=== PATIENT | male | born 1990 | race American Indian/Alaskan Native ===

== ENCOUNTER 2020-05-16 18:31 | Emergency (ER) | payer OTHER ==
[2020-05-16] MEDS ORDERED: ONDANSETRON 4 MG/2 ML INJ IV ONE (20:55)
[2020-05-16] MEDS ORDERED: KETOROLAC 30 MG/1 ML INJ IV ONE (20:55)
[2020-05-16] MEDS ORDERED: SODIUM CHLORIDE 0.9% 1000 ML 1,000 ML IV ONE (20:55)
[2020-05-16 21:17] LABS: Hematocrit 42.5 % (35.5-45.6); Hemoglobin 14.5 gm/dl (11.8-15.2); Mean Corpuscular HGB Conc 34 % (32-34); Mean Corpuscular Volume 88 fl (84-94); Platelet Count 218 K/mm3 (140-440); Red Cell Distribution Width 15.1 % (13.2-15.2)
[2020-05-16 21:34] LABS: Bilirubin,Urine NEG (Negative); Blood,Urine NEG (Negative); Color,Urine Yellow (Yellow); Protein,Urine <15 mg/dL mg/dL (Negative); Urobilinogen,Urine < 2.0 mg/dL (<2.0); WBC,Urine < 1.0 /HPF (0.0-6.0)
[2020-05-16 21:35] LABS: Alanine Aminotransferase 27 units/L (7-56); Albumin 4.2 g/dL (3.9-5); BUN/Creatinine Ratio 11; Blood Urea Nitrogen 14 mg/dL (9-20); Calcium 9.2 mg/dL (8.4-10.2); Hemolysis Index 15
--- NOTE | 2020-05-16 22:14 | Cat Scan Report ---
CT ABDOMEN AND PELVIS WITHOUT CONTRAST INDICATION / CLINICAL INFORMATION: Left flank/groin pain - r/o kidney stones, hernia. TECHNIQUE: Axial CT images were obtained through the abdomen and pelvis without IV contrast. All CT scans at this location are performed using CT dose reduction for ALARA by means of automated exposure control. COMPARISON: None available. FINDINGS: Lack of subcutaneous and intra-abdominal fat limits the sensitivity of this study. LOWER CHEST: No significant abnormality. LIVER: No significant abnormality. GALLBLADDER: No significant abnormality. BILE DUCTS: No significant abnormality. PANCREAS: No significant abnormality. SPLEEN: No significant abnormality. ADRENALS: No significant abnormality. RIGHT KIDNEY / URETER: No significant abnormality. LEFT KIDNEY / URETER: Dilated left renal pelvis without obstructing stone identified. STOMACH / SMALL BOWEL: No significant abnormality. COLON: No significant abnormality. APPENDIX: Not visualized. PERITONEUM: No free fluid. No free air. No fluid collection. LYMPH NODES: No significant adenopathy. AORTA / ARTERIES: No significant abnormality. IVC / VEINS: No significant abnormality. URINARY BLADDER: Contracted. No acute abnormality. REPRODUCTIVE ORGANS: No significant abnormality. ADDITIONAL FINDINGS: None. SKELETAL SYSTEM: No significant abnormality. IMPRESSION: 1. No urinary tract stones. 2. Mildly dilated left renal pelvis without definite hydronephrosis. 3. No inflammatory process. Signer Name: Capo Garland MD Signed: 05/16/2020 10:10 PM Workstation Name: [id number]
[2020-05-16 22:25] LABS: Total Cells Counted 100
[2020-05-16 22:27] LABS: Platelet Estimate Consistent w Auto; RBC Morphology Normal
--- NOTE | 2020-05-16 22:38 | Emergency Department Report ---
ED Abdominal Pain HPI - General Chief Complaint: Pain General Stated Complaint: LT SIDE GROIN PAIN Source: patient Mode of arrival: Ambulatory Limitations: No Limitations - History of Present Illness Initial Comments: Patient is a 29-year-old -[place] male with no past medical history except left inguinal hernia surgery with mesh, who presents to the ED with acute onset persistent left flank pain that radiates to the left inguinal area for the last 2 days. Patient states that the pain is persistent, constant and worse with movement. Patient states that the pain has been sharp, waxing and waning. Patient denies hematuria, testicular pain, dysuria, urinary frequency and urgency, chest pain, nausea and vomiting, penile discharge, traumatic injury, fever, chills, cough, sore throat, chest pain or shortness of breath and diarrhea. MD Complaint: abdominal pain (Left inguinal), flank pain (LEFT) -: Sudden, days(s) (2) Location: L flank Radiation: L flank, other (left inguinal) Migration to: L flank, other (left inguinal ) Severity: severe Severity scale (0 -10): 8 Improves With: nothing Worsens With: movement Associated Symptoms: denies other symptoms, anorexia. denies: nausea, vomiting, fever, chills, dysuria, hematemesis, hematochezia, melena - Related Data Previous Rx's Medication Instructions Recorded Last Taken Type Baclofen 20 mg PO Q8H PRN #21 tablet 05/16/20 Unknown Rx Naproxen 500 mg PO Q12H PRN #30 tablet 05/16/20 Unknown Rx Allergies Allergy/AdvReac Type Severity Reaction Status Date / Time No Known Allergies Allergy Unverified 05/16/20 18:42 ED Review of Systems ROS: Stated complaint: LT SIDE GROIN PAIN Other details as noted in HPI Constitutional: denies: chills, fever Eyes: denies: eye pain, eye discharge, vision change ENT: denies: ear pain, throat pain Respiratory: denies: cough, shortness of breath, wheezing Cardiovascular: denies: chest pain, palpitations Endocrine: no symptoms reported Gastrointestinal: abdominal pain (left flank pain radiating to left inguinal area). denies: nausea, vomiting, diarrhea Genitourinary: denies: urgency, dysuria Musculoskeletal: denies: back pain, joint swelling, arthralgia Skin: denies: rash, lesions Neurological: denies: headache, weakness, paresthesias Psychiatric: denies: anxiety, depression Hematological/Lymphatic: denies: easy bleeding, easy bruising ED Past Medical Hx - Past Medical History Previous Medical History?: Yes Additional medical history: left groin - Surgical History Past Surgical History?: Yes Additional Surgical History: left groin hernia repair - Social History Smoking Status: Current Every Day Smoker Substance Use Type: Alcohol, Marijuana - Medications Home Medications: Home Medications Medication Instructions Recorded Confirmed Last Taken Type Baclofen 20 mg PO Q8H PRN #21 tablet 05/16/20 Unknown Rx Naproxen 500 mg PO Q12H PRN #30 tablet 05/16/20 Unknown Rx ED Physical Exam - General Limitations: No Limitations General appearance: alert, in no apparent distress - Head Head exam: Present: atraumatic, normocephalic, normal inspection - Eye Eye exam: Present: normal appearance, PERRL, EOMI Pupils: Present: normal accommodation - ENT ENT exam: Present: normal exam, normal orophraynx, mucous membranes moist, TM's normal bilaterally, normal external ear exam - Neck Neck exam: Present: normal inspection, full ROM - Respiratory Respiratory exam: Present: normal lung sounds bilaterally. Absent: respiratory distress, wheezes, chest wall tenderness, decreased breath sounds, prolonged expiratory - Cardiovascular Cardiovascular Exam: Present: normal rhythm, bradycardia, normal heart sounds. Absent: systolic murmur, diastolic murmur, rubs, gallop - GI/Abdominal GI/Abdominal exam: Present: soft, tenderness (Palpable left flank and left inguinal tenderness), normal bowel sounds. Absent: rebound, rigid, hyperactive bowel sounds, hypoactive bowel sounds, organomegaly - exam: Present: normal inspection External exam: Present: normal external exam, other (Palpable left inguinal tenderness, no sign of inguinal hernia on physical exam) - Extremities Exam Extremities exam: Present: normal inspection, full ROM, normal capillary refill - Back Exam Back exam: Present: normal inspection, full ROM. Absent: tenderness, CVA tende rness (R), CVA tenderness (L), muscle spasm, paraspinal tenderness, vertebral tenderness - Neurological Exam Neurological exam: Present: alert, oriented X3, CN II-XII intact, normal gait, reflexes normal - Psychiatric Psychiatric exam: Present: normal affect, normal mood - Skin Skin exam: Present: warm, dry, intact, normal color. Absent: rash ED Course Vital Signs 05/16/20 18:44 Temperature 98.2 F Pulse Rate 47 L Respiratory 20 Rate Blood Pressure 122/69 O2 Sat by Pulse 99 Oximetry ED Medical Decision Making - Lab Data Result diagrams: 05/16/20 21:04 05/16/20 21:04 - Radiology Data Radiology results: report reviewed, image reviewed [facility] [address] [id number] Cat Scan Report Signed Patient: KATERIN HAQUE MR#: [id number] : 1990 Acct:[id number] Age/Sex: 29 / M ADM Date: 05/16/20 Loc: ED Attending Dr: Ordering Physician: EDISON MORTON Date of Service: 05/16/20 Procedure(s): CT abdomen pelvis wo con Accession Number(s): [id number] cc: EDISON MORTON CT ABDOMEN AND PELVIS WITHOUT CONTRAST INDICATION / CLINICAL INFORMATION: Left flank/groin pain - r/o kidney stones, hernia. TECHNIQUE: Axial CT images were obtained through the abdomen and pelvis without IV contrast. All CT scans at this location are performed using CT dose reduction for ALARA by means of automated exposure control. COMPARISON: None available. FINDINGS: Lack of subcutaneous and intra-abdominal fat limits the sensitivity of this study. LOWER CHEST: No significant abnormality. LIVER: No significant abnormality. GALLBLADDER: No significant abnormality. BILE DUCTS: No significant abnormality. PANCREAS: No significant abnormality. SPLEEN: No significant abnormality. ADRENALS: No significant abnormality. RIGHT KIDNEY / URETER: No significant abnormality. LEFT KIDNEY / URETER: Dilated left renal pelvis without obstructing stone identified. STOMACH / SMALL BOWEL: No significant abnormality. COLON: No significant abnormality. APPENDIX: Not visualized. PERITONEUM: No free fluid. No free air. No fluid collection. LYMPH NODES: No significant adenopathy. AORTA / ARTERIES: No significant abnormality. IVC / VEINS: No significant abnormality. URINARY BLADDER: Contracted. No acute abnormality. REPRODUCTIVE ORGANS: No significant abnormality. ADDITIONAL FINDINGS: None. SKELETAL SYSTEM: No significant abnormality. IMPRESSION: 1. No urinary tract stones. 2. Mildly dilated left renal pelvis without definite hydronephrosis. 3. No inflammatory process. Signer Name: Capo Garland MD Signed: 05/16/2020 10:10 PM Workstation Name: [id number] Transcribed By: DT Dictated By: Chiki Garland MD Electronically Authenticated By: Chiki Garland MD Signed Date/Time: 05/16/202209 DD/ 06 TD/TT: - Medical Decision Making This is a 29-year-old -[place] male with no past medical history except left inguinal hernia surgery with mesh, who presents to the ED with acute onset persistent left flank pain that radiates to the left inguinal area for the last 2 days. Patient states that the pain is persistent, constant and worse with movement. Patient states that the pain has been sharp, waxing and waning. In the ED, patient is alert and oriented x3 and is not in any distress. Patient declined any pain medications in the ED. Lab test results were reviewed and are all nonactionable. Abdomen pelvis CT scan without contrast showed No urinary tract stones or inflammatory process but it showed a mildly dilated left renal pelvis without definite hydronephrosis. Based on these findings, the patient may have had kidney stone but passed the stone prior to arrival in the ED. Patient was therefore discharged home on pain medications and advised to follow- up with his primary care physician in 5 to 7 days for reevaluation or return to the ED immediately if symptoms get worse. - Differential Diagnosis Kidney stones; UTI; Epididymitis; Inguinal strain; renal colic; diverticuli Critical care attestation.: If time is entered above; I have spent that time in minutes in the direct care of this critically ill patient, excluding procedure time. ED Disposition Clinical Impression: Acute left flank pain, Renal colic on left side Strain of left inguinal muscle Qualifiers: Encounter type: initial encounter Qualified Code(s): S39.013A - Strain of muscle, fascia and tendon of pelvis, initial encounter Disposition: DC-01 TO HOME OR SELFCARE Is pt being admited?: No Does the pt Need Aspirin: No Condition: Stable Instructions: Renal Colic, [id number], Kidney Stones, [id number], Muscle Strain, [id number], Flank Pain, Adult Additional Instructions: All lab test results were reviewed and are all nonactionable. The abdomen pelvis CT scan without contrast showed no obvious kidney stones but a mildly dilated left renal pelvis without definite hydronephrosis, consistent with a recently passed kidney stone. Alternatively, the pain in the left inguinal area could also be from left inguinal muscle strain from heavy lifting. Therefore take medications with food, drink plenty of fluids and follow-up with your primary care physician in 5 to 7 days for reevaluation. Return to the ED immediately if symptoms get worse. Prescriptions: Baclofen 20 mg PO Q8H PRN #21 tablet PRN Reason: Muscle Spasm Naproxen 500 mg PO Q12H PRN #30 tablet PRN Reason: Pain , Severe (7-10) Referrals: [facility] [Provider Group] - 7-10 days Time of Disposition: 22:41 Print Language: CROATIAN
[2020-05-17 01:07] VITALS: BP 122/72
== END 2020-05-17 | disposition home or self-care (01) ==
LOC: ED 18:31
DX: S39.013A Strain of muscle, fascia and tendon of pelvis, initial encounter (principal); N23 Unspecified renal colic; F17.200 Nicotine dependence, unspecified, uncomplicated; F12.10 Cannabis abuse, uncomplicated; Z79.899 Other long term (current) drug therapy; X58.XXXA Exposure to other specified factors, initial encounter; Y93.89 Activity, other specified; Y92.89 Other specified places as the place of occurrence of the external cause; Y99.8 Other external cause status
CPT/HCPCS: 36415; 74176; 80053; 81001; 83690; 85007; 85025; 96360; 99284; J1885; J7030; J2405